=== PATIENT | male | born 1995 | race African-American/Black ===

== ENCOUNTER 2018-02-28 21:19 | Emergency (ER) | payer SELFPAY | END 2018-03-01 00:48 | disposition left against medical advice (07) | LOC: ER 21:19 | DX: Z53.21 Procedure and treatment not carried out due to patient leaving prior to being seen by health care provider (principal) ==

== ENCOUNTER 2018-03-19 15:49 | Observation (INO) | payer SELFPAY ==
[2018-03-19] MEDS ORDERED: AZTREONAM INJ 1 GM VIAL IV ONE (16:15)
[2018-03-19] MEDS ORDERED: CEFAZOLIN 1 GM/D5W RTU 1 GM/50 ML RTUPB IV ONE (16:15)
--- NOTE | 2018-03-19 16:20 | ER Document Report ---
ED General - General Chief Complaint: Suicidal Ideation Stated Complaint: PSYCH EVAL Time Seen by Provider: 03/19/18 16:15 Mode of Arrival: Ambulatory Information source: Patient Notes: This is a 22-year-old man who walked into the emergency room with self-inflicted wounds to both sides of his neck. She also has superficial laceration to the left palm aspect of his wrist. Patient does have a history of depression and his girlfriend states that he is been very depressed lately. Immunizations he says are up-to-date. He denies any allergies to medicines. His only medicines his Klonopin. TRAVEL OUTSIDE OF THE [place] IN LAST 30 DAYS: No - HPI Onset: Just prior to arrival Onset/Duration: Sudden Quality of pain: Dull Severity: Mild Pain Level: 1 Associated symptoms: denies: Chest pain, Fever, Shortness of breath Exacerbated by: Denies Relieved by: Denies Similar symptoms previously: Yes Recently seen / treated by doctor: No - Related Data Allergies/Adverse Reactions: No Known Allergies Allergy (Verified 03/19/18 16:49) Past Medical History - General Information source: Patient, Relative - Social History Smoking Status: Unknown if Ever Smoked Cigarette use (# per day): No Chew tobacco use (# tins/day): No Frequency of alcohol use: None Drug Abuse: Marijuana Lives with: Family Family History: None Patient has suicidal ideation: Yes Patient has homicidal ideation: No - Past Medical History Cardiac Medical History: Reports: None Pulmonary Medical History: Reports: None EENT Medical History: Reports: None Neurological Medical History: Reports: None Endocrine Medical History: Reports: None Renal/ Medical History: Reports: None Malignancy Medical History: Reports None GI Medical History: Reports: None Musculoskeletal Medical History: Reports None Skin Medical History: Reports None Psychiatric Medical History: Reports: Hx Bipolar Disorder Traumatic Medical History: Reports: None Infectious Medical History: Reports: None Surgical Hx: Negative Review of Systems - Review of Systems Constitutional: denies: Chills, Fever EENT: See HPI Cardiovascular: No symptoms reported Respiratory: No symptoms reported Gastrointestinal: No symptoms reported Genitourinary: No symptoms reported Male Genitourinary: No symptoms reported Musculoskeletal: See HPI Skin: See HPI Hematologic/Lymphatic: No symptoms reported Neurological/Psychological: See HPI Physical Exam - Vital signs Vitals: Resp Pulse Ox 28 H 100 03/19/18 16:03 03/19/18 16:03 Notes: Physical exam: GENERAL: 32-year-old man, alert and oriented x3, appears upset. HEAD: Atraumatic, normocephalic. EYES: Pupils equal round and reactive to light, extraocular movements intact, sclera anicteric, conjunctiva are normal. ENT: TMs normal, nares patent, oropharynx clear without exudates. Moist mucous membranes. NECK: Normal range of motion, supple without obvious mass or JVD. LUNGS: Breath sounds clear to auscultation bilaterally and equal. No wheezes rales or rhonchi. HEART: Regular rate and rhythm without murmurs, rubs or gallops. ABDOMEN: Soft, normoactive bowel sounds. No tenderness to palpation. No guarding, no rebound. No masses appreciated. EXTREMITIES: Normal range of motion, no pitting or edema. No clubbing or cyanosis. NEUROLOGICAL: Cranial nerves II through XII grossly intact. Normal speech, moving all extremities. PSYCH: Normal mood, normal affect. SKIN: Warm, Dry, normal turgor, no rashes or lesions noted. Course - Re-evaluation Re-evalutation: 03/19/18 18:20 Dr. Gavin in the emergency room at the bedside with patient. Plan will be for wound exploration, irrigation and repair in the OR. - Vital Signs Vital signs: Temp Pulse Resp BP Pulse Ox 98 F 20 124/72 100 03/19/18 16:49 03/19/18 16:04 03/19/18 16:30 03/19/18 16:04 - Laboratory Result Diagrams: 03/19/18 16:15 03/19/18 16:15 Laboratory results interpreted by me: 03/19/18 16:15 AST 13 L ALT 14 L Discharge - Discharge Clinical Impression: Penetrating self-inflicted neck wound, Multiple self-inflicted lacerations, Major depression Condition: Serious Disposition: ADMITTED OBSERVATION Admitting Provider: Surgicalist Unit Admitted: OR
[2018-03-19 16:25] LABS: ABSOLUTE LYMPHOCYTES (AUTO) 1.2 10^3/uL (0.5-4.7); ABSOLUTE MONOCYTES (AUTO) 0.7 10^3/uL (0.1-1.4); ABSOLUTE NEUT (AUTO) 4.4 10^3/uL (1.7-8.2); BASOPHILS % (AUTO) 0.6 % (0-2); EOSINOPHILS % (AUTO) 0.6 % (0-6); HEMATOCRIT 46.7 % (37.9-51.0); HEMOGLOBIN 15.5 g/dL (13.5-17.0); LYMPHOCYTES % (AUTO) 18.9 % (13-45); MEAN CORPUSCULAR HEMOGLOBIN 27.8 pg (27.0-33.4); MEAN CORPUSCULAR HGB CONC 33.1 g/dL (32.0-36.0); MEAN CORPUSCULAR VOLUME 84 fl (80-97); MONOCYTES % (AUTO) 10.4 % (3-13); PLATELET COUNT 251 10^3/uL (150-450); RED BLOOD COUNT 5.55 10^6/uL (4.35-5.55); RED CELL DISTRIBUTION WIDTH 13.5 % (11.5-14.0); SEGMENTED NEUTROPHILS % (AUTO) 69.5 % (42-78); TOTAL CELLS COUNTED % (AUTO) 100 %; WHITE BLOOD COUNT 6.3 10^3/uL (4.0-10.5)
[2018-03-19] MEDS ORDERED: PROPOFOL INJ 200 MG/20 ML VIAL IV ONE (16:29)
[2018-03-19] MEDS ORDERED: FENTANYL CITRATE INJ/PF 100 MCG/2 ML AMPUL ONE (16:29)
[2018-03-19] MEDS ORDERED: MIDAZOLAM 2 MG/2 ML INJ ONE (16:29)
[2018-03-19] MEDS ORDERED: DEXAMETHASONE SOD PHOSPHATE INJ 4 MG/1 ML VIAL ONE (16:29)
[2018-03-19] MEDS ORDERED: ONDANSETRON HCL INJ/PF 4 MG/2 ML SDV ONE (16:29)
[2018-03-19 16:30] LABS: INTERNATIONAL RATION (INR) 1.01; PROTHROMBIN TIME 13.8 SEC (11.4-15.4)
[2018-03-19] MEDS ORDERED: ACETAMINOPHEN 1,000 MG/100 ML RTUPB IV ONE (16:30)
[2018-03-19] MEDS ORDERED: BUPIVACAINE HCL 0.25 % INJ/PF (2.5 MG/1 ML) 30 ML VIAL ONE (16:36)
[2018-03-19 17:02] LABS: ALANINE AMINOTRANSFERASE 14 U/L (21-72); ALBUMIN 4.6 g/dL (3.5-5.0); ALKALINE PHOSPHATASE 69 U/L (38-126); ANION GAP 13 (5-19); ASPARTATE AMINO TRANSFERASE 13 U/L (17-59); BILIRUBIN,DIRECT 0.3 mg/dL (0.0-0.4); BILIRUBIN,TOTAL 0.8 mg/dL (0.2-1.3); BLOOD UREA NITROGEN 14 mg/dL (7-20); CALCIUM 9.5 mg/dL (8.4-10.2); CARBON DIOXIDE 27 mmol/L (22-30); CHLORIDE 103 mmol/L (98-107); GLUCOSE 84 mg/dL (75-110); POTASSIUM 4.2 mmol/L (3.6-5.0); SODIUM 142.6 mmol/L (137-145); TOTAL PROTEIN 6.9 g/dL (6.3-8.2)
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
[2018-03-19] MEDS ORDERED: ONDANSETRON HCL INJ/PF 4 MG/2 ML SDV IV PRN (18:32)
[2018-03-19] MEDS ORDERED: ACETAMINOPHEN 325 MG TABLET PO PRN (18:32)
[2018-03-19] MEDS: FENTANYL CITRATE INJ/PF 100 MCG/2 ML AMPUL ONE ×2 (18:33→18:38)
[2018-03-19] MEDS: KETOROLAC TROMETHAMINE INJ/PF 30 MG/1 ML SDV IV PRN (21:20)
[2018-03-20 06:47] LABS: HEMATOCRIT 38.7 % (37.9-51.0); MEAN CORPUSCULAR HEMOGLOBIN 28.3 pg (27.0-33.4); MEAN CORPUSCULAR HGB CONC 33.8 g/dL (32.0-36.0); MEAN CORPUSCULAR VOLUME 84 fl (80-97); PLATELET COUNT 212 10^3/uL (150-450); RED BLOOD COUNT 4.62 10^6/uL (4.35-5.55); RED CELL DISTRIBUTION WIDTH 13.2 % (11.5-14.0); WHITE BLOOD COUNT 10.5 10^3/uL (4.0-10.5)
[2018-03-20 06:48] LABS: HEMOGLOBIN 13.1 g/dL (13.5-17.0)
--- NOTE | 2018-03-20 07:33 | Operative Report ---
Nonrecallable Operative Report DATE OF SURGERY: 03/20/18 PREOPERATIVE DIAGNOSIS: self inflicted knife wound to the right neck, left neck, and left wrist. POSTOPERATIVE DIAGNOSIS: 1. Right sided neck wound, extending to the platysma anteriorly, and through the platysma and into the SCM posteriorly. 2. Superficial left neck wound, not extending to the platysma. 3. superficial left wrist incision, not involving deeper structures. OPERATION: 1. Exploration and closure of the neck and wrist wounds. 2. Intermediate closure of right neck wound, 12 cm in length. 3. Simple closure of left neck superior incision, 10 cm. 4. Simple closure of left neck inferior incision, 5 cm. 5. Simple closure of left wrist incision, 6 cm. SURGEON: ANEL HERNANDEZ ANESTHESIA: GA TISSUE REMOVED OR ALTERED: None COMPLICATIONS: None apparent ESTIMATED BLOOD LOSS: 50 cc PROCEDURE: Drains/implants: None. Procedure in detail: After informed consent was obtained from the patient, he was brought into the operating room and laid in the supine position. The right neck, left neck, and left wrist were irrigated, washed, prepped, and draped. Attention was turned to the right neck. There was some active bleeding from the external jugular vein, which was severed. Several bleeding vessels were ligated and tied. After the bleeding was halted, the wound was inspected. The anterior portion of the wound did not violate the platysma, however the posterior portion violated the platysma and damaged a portion of the sternocleidomastoid muscle. The platysma was closed using 3-0 Vicryl suture in simple interrupted fashion. The other subcutaneous tissues were closed using 3-0 Vicryl suture in interrupted fashion. The overlying skin was closed using a mixture of 3-0 nylon suture and skin freddy. Attention was then turned to the left neck. There were 2 incisions on the left neck. A superior incision measuring 10 cm and an inferior incision measuring 5 cm. These wounds did not extend to the platysma. They were involved with skin and fatty tissue only. A skin stapler was used to close the defects on the left neck. The left wrist incision was then examined. The incision barely divided the skin. There was no involvement of deeper structures. Once this was confirmed, the 6 cm left wrist incision was closed in simple fashion using the skin stapler. After this was completed, the procedure was concluded. A dressing was fashioned. All sponge, instrument, and needle counts were correct x2. Condition: Stable.
[2018-03-20] MEDS: KETOROLAC TROMETHAMINE INJ/PF 30 MG/1 ML SDV IV PRN ×2 (07:39→17:59)
--- NOTE | 2018-03-20 12:07 | PDOC PROGRESS REPORT ---
Subjective Progress Note for:: 03/20/18 Reason For Visit: ATTEMPTED SUICIDE,NECK LACERATIONS Physical Exam Vital Signs: Temp Pulse Resp BP Pulse Ox 97.5 F 52 L 14 133/72 H 99 03/20/18 08:23 03/20/18 08:23 03/20/18 08:23 03/20/18 08:23 03/20/18 08:23 Intake & Output 03/19/18 03/20/18 03/21/18 06:59 06:59 06:59 Intake Total 1272 Balance 1272 Weight 62.596 kg General appearance: PRESENT: no acute distress Neck exam: PRESENT: full ROM - min tenderness, wounds clean dry sutures intact. Respiratory exam: PRESENT: clear to auscultation janes Cardiovascular exam: PRESENT: RRR Pulses: PRESENT: normal carotid pulses, normal radial pulses, normal femoral pulses GI/Abdominal exam: PRESENT: soft Extremities exam: PRESENT: full ROM - left wrist incision, clean dry with surtures intact. Skin exam: PRESENT: dry Results Laboratory Results: 03/20/18 06:28 03/19/18 16:15 03/19/18 03/19/18 03/20/18 16:15 16:15 06:28 WBC 6.3 10.5 RBC 5.55 4.62 Hgb 15.5 13.1 L D Hct 46.7 38.7 MCV 84 84 MCH 27.8 28.3 MCHC 33.1 33.8 RDW 13.5 13.2 Plt Count 251 212 Seg Neutrophils % 69.5 Lymphocytes % 18.9 Monocytes % 10.4 Eosinophils % 0.6 Basophils % 0.6 Absolute Neutrophils 4.4 Absolute Lymphocytes 1.2 Absolute Monocytes 0.7 Absolute Eosinophils 0.0 Absolute Basophils 0.0 Sodium 142.6 Potassium 4.2 Chloride 103 Carbon Dioxide 27 Anion Gap 13 BUN 14 Creatinine 0.87 Est GFR ( Amer) > 60 Est GFR (Non-Af Amer) > 60 Glucose 84 Calcium 9.5 Total Bilirubin 0.8 AST 13 L ALT 14 L Alkaline Phosphatase 69 Total Protein 6.9 Albumin 4.6 Assessment & Plan - Inpatient Certification Medical Necessity: Need Close Monitoring Due to Risk of Patient Decompensation - Plan Summary Plan Summary: s/p suicide attempt with multiple self-inflicted lacerations repaired last pm this am wound clean, no neurologic sequela awaiting psych eval before discharge.
[2018-03-20] MEDS ORDERED: LORAZEPAM 1 MG TABLET PO PRN (13:30)
[2018-03-20] MEDS ORDERED: LORAZEPAM 1 MG TABLET ONE (13:33)
[2018-03-20] MEDS ORDERED: BENZTROPINE MESYLATE INJ 2 MG/2 ML AMPULE IM ONE (16:15)
[2018-03-20] MEDS ORDERED: OLANZAPINE INJ/PF 10 MG SDV IM ONE (16:15)
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
[2018-03-21 01:11] LABS: URINE AMPHETAMINES SCREEN NEGATIVE; URINE BARBITURATES SCREEN NEGATIVE; URINE COCAINE SCREEN NEGATIVE; URINE METHADONE SCREEN NEGATIVE; URINE PHENCYCLIDINE SCREEN NEGATIVE
[2018-03-21 01:15] LABS: URINE BENZODIAZEPINES SCREEN UNCONFIRMED POSITIVE; URINE MARIJUANA (THC) SCREEN UNCONFIRMED POSITIVE
--- NOTE | 2018-03-21 08:59 | Progress Note ---
Provider Note Provider Note: Patient is cleared from surgery and medicine for psych placement. Summary: This is a 22 yr old male with no significant PMH aside form prior suicide attempts and anger issues who was admitted with self inflicted knife wounds to the right and left neck area and left wrist. He was admitted under surgery initially and went to the OR for exploration and closure of mentioned wounds. Psych was also consulted. Dr. Montez requested transfer of service to hospitalist service today as he has been cleared for discharge by surgery but is still here due to his psych issues. He has been IVced. Discusssed case with psych and surgery. Patient will be going to [facility] for placement. Patient is amenable and is willing to go for such placement. He will ff-up with surgery in 2 weeks for removal of sutures. No need for systemic antibiotics (only topical one) per surgery.
--- NOTE | 2018-03-21 09:01 | PDOC PROGRESS REPORT ---
Subjective Progress Note for:: 03/21/18 Subjective:: No c/o Reason For Visit: ATTEMPTED SUICIDE,NECK LACERATIONS Physical Exam Vital Signs: Temp Pulse Resp BP Pulse Ox 98.0 F 79 15 116/72 100 03/21/18 07:52 03/21/18 07:52 03/21/18 07:52 03/21/18 07:52 03/21/18 07:52 Intake & Output 03/20/18 03/21/18 03/22/18 06:59 06:59 06:59 Intake Total 1272 0 Output Total 0 Balance 1272 0 Weight 62.596 kg 55.6 kg General appearance: PRESENT: no acute distress Head exam: PRESENT: atraumatic Skin exam: PRESENT: other - All wounds (bilateral neck and left wrist) c/d/i Results Laboratory Results: 03/20/18 06:28 03/19/18 16:15 Assessment & Plan - Diagnosis (1) Open neck wound Qualifiers: Encounter type: initial encounter Qualified Code(s): S11.90XA - Unspecified open wound of unspecified part of neck, initial encounter Is this a current diagnosis for this admission?: Yes (2) Suicide and self-inflicted injury by unspecified means Qualifiers: Encounter type: initial encounter Qualified Code(s): X83.8XXA - Intentional self-harm by other specified means, initial encounter Is this a current diagnosis for this admission?: Yes - Plan Summary Plan Summary: A/ Attempted suicide Multiple wounds (bilatreral neck and left wrist) repaired in Surgery, C/d/I P/ transfer to Medicine Service Dr. Monroy Patient can be discharged to home at anytime by the General Surgery viewpoint No wound care needed No antibiotics needed No bath allowed until sutures or freddy are in place Shower is allowed Return to General Surgery office in 3 weeks for suture removal
[2018-03-21] MEDS: KETOROLAC TROMETHAMINE INJ/PF 30 MG/1 ML SDV IV PRN (11:57)
[2018-03-21] MEDS ORDERED: NICOTINE 21 MG/24 HR PATCH.TD24 TD SCH (12:15)
--- NOTE | 2018-03-21 13:34 | PDOC TRANSFER SUMMARY ---
General Admission Date/PCP: 03/19/18 16:38 Resuscitation Status: Full Code - Transfer Diagnosis (1) Open neck wound Is this a current diagnosis for this admission?: Yes (2) Suicide and self-inflicted injury by unspecified means Is this a current diagnosis for this admission?: Yes (3) Suicidal behavior Is this a current diagnosis for this admission?: Yes - Transfer Medications Home Medications: No Home Medications 03/19/18 Transfer Medications: Current Medications Acetaminophen (Tylenol 325 Mg Tablet) 650 mg PO Q4HP PRN PRN Reason: FOR PAIN Stop: 04/18/18 18:31 Last Admin: 03/19/18 21:20 Dose: 650 mg Documented by: Ketorolac Tromethamine (Toradol Inj/Pf 30 Mg/1 Ml Sdv) 30 mg IV Q8HP PRN PRN Reason: FOR BREAKTHROUGH PAIN Stop: 03/24/18 20:43 Last Admin: 03/21/18 11:57 Dose: 30 mg Documented by: Lorazepam (Ativan 1 Mg Tablet) 1 mg PO Q6HP PRN PRN Reason: ANXIETY Stop: 03/27/18 13:29 Last Admin: 03/21/18 12:05 Dose: 1 mg Documented by: Nicotine (Nicoderm 21 Mg/24 Hr Transderm Patch) 1 each TD DAILY SHELLEY Stop: 04/20/18 12:14 Last Admin: 03/21/18 12:04 Dose: 1 each Documented by: Ondansetron HCl (Zofran Inj/Pf 4 Mg/2 Ml Sdv) 4 mg IV Q4HP PRN PRN Reason: FOR NAUSEA/VOMITING Stop: 04/18/18 18:31 - Allergies Allergies/Adverse Reactions: No Known Allergies Allergy (Verified 03/19/18 16:49) Hospital Course Hospital Course: This is a 22 yr old male with no significant PMH aside form prior suicide attempts and anger issues who was admitted with self inflicted knife wounds to the right and left neck area and left wrist. He was admitted under surgery initially and went to the OR for exploration and closure of mentioned wounds. Psych was also consulted. Dr. Montez requested transfer of service to hospitalist service today as he has been cleared for discharge by surgery but is still here due to his psych issues. He has been IVced. Discusssed case with psych and surgery. Patient will be going to [facility] for placement. Patient is amenable and is willing to go for such placement. He will ff-up with surgery in 2 weeks for removal of sutures. No need for systemic antibiotics (only topical one) per surgery. Physical Exam Vital Signs: Temp Pulse Resp BP Pulse Ox 98.0 F 79 15 116/72 100 03/21/18 07:52 03/21/18 07:52 03/21/18 07:52 03/21/18 07:52 03/21/18 07:52 Intake & Output 03/20/18 03/21/18 03/22/18 06:59 06:59 06:59 Intake Total 1272 0 Output Total 0 325 Balance 1272 0 -325 Weight 138 lb 122 lb 9.232 oz General appearance: PRESENT: no acute distress, well-developed, well-nourished Head exam: PRESENT: atraumatic, normocephalic Eye exam: PRESENT: conjunctiva pink, EOMI, PERRLA. ABSENT: scleral icterus Ear exam: PRESENT: normal external ear exam Mouth exam: PRESENT: moist, tongue midline Neck exam: PRESENT: other - sutured wounds on neck Respiratory exam: PRESENT: clear to auscultation janes. ABSENT: rales, rhonchi, wheezes Cardiovascular exam: PRESENT: RRR. ABSENT: diastolic murmur, rubs, systolic m urmur Pulses: PRESENT: normal dorsalis pedis pul GI/Abdominal exam: PRESENT: normal bowel sounds, soft. ABSENT: distended, guarding, mass, organolmegaly, rebound, tenderness Rectal exam: PRESENT: deferred Neurological exam: PRESENT: alert, awake, oriented to person, oriented to place, oriented to time, oriented to situation, CN II-XII grossly intact. ABSENT: motor sensory deficit Skin exam: PRESENT: other - sutured self inflicted knife wounds to the right and left neck area and left wrist Results Laboratory Results: 03/20/18 06:28 03/19/18 16:15
[2018-03-21 14:52] VITALS: BP 160/77
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
== END 2018-03-21 14:30 ==
LOC: ER 15:49 → EH 16:38 → 4S 19:36 → ICU 03-20 17:49
PROVIDERS: ADMIT Internal Medicine; ATTEND Internal Medicine
PROC: 0HQ4XZZ Repair Neck Skin, External Approach (ICD-10-PCS; 2018-03-19)
PROC: 0HQEXZZ Repair Left Lower Arm Skin, External Approach (ICD-10-PCS; 2018-03-19)
PROC: 0HQ4XZZ Repair Neck Skin, External Approach (ICD-10-PCS; principal; 2018-03-19 17:00)
PROC: 05L Upper Veins, Occlusion (ICD-10-PCS; 2018-03-20)
DX: S16.2XXA Laceration of muscle, fascia and tendon at neck level, initial encounter (principal); S11.81XA Laceration without foreign body of other specified part of neck, initial encounter; S61.512A Laceration without foreign body of left wrist, initial encounter; S15.211A Minor laceration of right external jugular vein, initial encounter; X78.1XXA Intentional self-harm by knife, initial encounter; F32.9 Major depressive disorder, single episode, unspecified; F41.9 Anxiety disorder, unspecified; F12.10 Cannabis abuse, uncomplicated; Z91.5 Personal history of self-harm; Z56.0 Unemployment, unspecified
CPT/HCPCS: 99284; 96365; 36415 ×2; 85025; 85027; 85610; 80053; 80307; 13132; 13133; 37565; 12006; J2250; J0515; J0690; J1100; J3010; J1885 ×3; J2405; J2704; J3490; J0131; 300

== ENCOUNTER 2018-03-29 11:25 | Emergency (ER) | payer SELFPAY ==
[2018-03-29 11:40] VITALS: BP 169/84
--- NOTE | 2018-03-29 12:32 | ER Document Report ---
ED Suture/Wound Recheck - General Chief Complaint: Suture Removal Stated Complaint: SUTURE REMOVAL Time Seen by Provider: 03/29/18 11:58 Mode of Arrival: Ambulatory Information source: Patient Notes: 22-year-old male presented to ED for removal of sutures and freddy from his left wrist left neck and right neck after he attempted to commit suicide slice in his bilateral neck and left wrist on 19 March. Patient is alert oriented respirations regular and unlabored speaking in full sentences. He denies any nausea vomiting pain or discomfort states there has not been any redness or drai nage. He states he went to surgery to have all of these wounds repaired and then was admitted. TRAVEL OUTSIDE OF THE [place] IN LAST 30 DAYS: No - HPI Previous ED treatment: Laceration repair Quality of pain: No pain Severity: None Pain Level: Denies Context: Injury Symptoms since procedure: No complaints Exacerbated by: Denies Relieved by: Denies - Related Data Allergies/Adverse Reactions: No Known Allergies Allergy (Verified 03/29/18 11:31) Past Medical History - General Information source: Patient - Social History Smoking Status: Former Smoker - Now uses vapor cigarettes Cigarette use (# per day): No Lives with: Family Family History: None - Past Medical History Cardiac Medical History: Reports: None Pulmonary Medical History: Reports: None EENT Medical History: Reports: None Neurological Medical History: Reports: None Endocrine Medical History: Reports: None Renal/ Medical History: Reports: None Malignancy Medical History: Reports None GI Medical History: Reports: None Musculoskeletal Medical History: Reports None Skin Medical History: Reports None Psychiatric Medical History: Reports: Hx Bipolar Disorder, Hx Depression Traumatic Medical History: Reports: None Infectious Medical History: Reports: None Past Surgical History: Reports: Other - Repair of self-inflicted wounds bilateral sides of the neck and left wrist - Immunizations Immunizations up to date: Yes Hx Diphtheria, Pertussis, Tetanus Vaccination: Yes Review of Systems - Review of Systems Constitutional: No symptoms reported EENT: No symptoms reported Cardiovascular: No symptoms reported Respiratory: No symptoms reported Gastrointestinal: No symptoms reported Genitourinary: No symptoms reported Male Genitourinary: No symptoms reported Musculoskeletal: No symptoms reported Skin: Other - [place] left wrist sutures right neck freddy left and right neck Hematologic/Lymphatic: No symptoms reported Neurological/Psychological: No symptoms reported Physical Exam - Vital signs Vitals: Temp Pulse Resp BP Pulse Ox 99.1 F 74 16 169/84 H 99 03/29/18 11:38 03/29/18 11:38 03/29/18 11:38 03/29/18 11:38 03/29/18 11:38 Interpretation: Normal - General General appearance: Appears well, Alert - HEENT Head: Normocephalic, Atraumatic Eyes: Normal Pupils: PERRL - Respiratory Respiratory status: No respiratory distress Chest status: Nontender Breath sounds: Normal Chest palpation: Normal - Cardiovascular Rhythm: Regular Heart sounds: Normal auscultation Murmur: No - Abdominal Inspection: Normal Distension: No distension Bowel sounds: Normal Tenderness: Nontender Organomegaly: No organomegaly - Back Back: Normal, Nontender - Extremities General upper extremity: Normal inspection, Nontender, Normal color, Normal ROM, Normal temperature General lower extremity: Normal inspection, Nontender, Normal color, Normal ROM, Normal temperature, Normal weight bearing. No: Eli's sign - Neurological Neuro grossly intact: Yes Cognition: Normal Orientation: AAOx4 [place] Coma Scale Eye Opening: Spontaneous Maggie Coma Scale Verbal: Oriented [place] Coma Scale Motor: Obeys Commands [place] Coma Scale Total: 15 Speech: Normal Motor strength normal: LUE, RUE, LLE, RLE Sensory: Normal - Psychological Associated symptoms: Normal affect, Normal mood - Skin Skin Temperature: Warm Skin Moisture: Dry Skin Color: Normal Skin irregularity: Laceration - Left and right neck and left wrist. Sutures removed from right neck site well approximated no redness no drainage, freddy removed from left and right neck no drainage redness or discomfort and freddy removed from left wrist wound open a small amount Steri-Strips applied and patient given instructions of care of Steri-Strips Course - Vital Signs Vital signs: Temp Pulse Resp BP Pulse Ox 99.1 F 74 16 169/84 H 99 03/29/18 11:38 03/29/18 11:38 03/29/18 11:38 03/29/18 11:38 03/29/18 11:38 Discharge - Discharge Clinical Impression: Visit for suture removal, Removal of staple Condition: Stable Disposition: HOME, SELF-CARE Instructions: Family Physicians / Practices Additional Instructions: Care of Steri-Strip Closure Your cut has been closed up with a special surgical tape. For this type of cut, it can replace stitches. You must protect the wound just as you would with stitches, however. For the first few days, keep the wound area completely dry. This also means you should avoid activity which makes you sweat. Do not move the area if motion stretches or wrinkles the strips. Don't allow the area to be bumped -- if bleeding occurs, the blood can make the strips loosen. The strips are somewhat waterproof. After a few days, the physician may allow you to shower. Be sure to ask if it's OK. Do not remove the tape until it peels off by itself. At that time, the wound should be healed. He was seen today for removal of your freddy and sutures. Your sutures and freddy have been removed the laceration to your left wrist has Steri-Strips applied as it is still mildly open. There is no signs or symptoms of infection or drainage. Please care for your Steri-Strips as described above. FOLLOW-UP CARE: If you have been referred to a physician for follow-up care, call the physicians office for an appointment as you were instructed or within the next two days. If you experience worsening or a significant change in your symptoms, notify the physician immediately or return to the Emergency Department at any time for re-evaluation. Forms: Elevated Blood Pressure
== END 2018-03-29 13:09 | disposition home or self-care (01) ==
LOC: ER 11:25
DX: S61.512D Laceration without foreign body of left wrist, subsequent encounter (principal); S11.91XD Laceration without foreign body of unspecified part of neck, subsequent encounter; X78.9XXD Intentional self-harm by unspecified sharp object, subsequent encounter